=== PATIENT | male | born 1955 | race Caucasian/White ===

== ENCOUNTER 2022-11-04 07:55 | Outpatient (CLI) | payer BC, MEDICARE | END 2022-11-04 07:56 | disposition home or self-care (01) | LOC: CSHCT 07:55 | PROVIDERS: ATTEND Neurological Surgery | DX: M43.16 Spondylolisthesis, lumbar region (principal); M48.061 Spinal stenosis, lumbar region without neurogenic claudication | CPT/HCPCS: 72131 ==